=== PATIENT | male | born 1960 | race African-American/Black ===

== ENCOUNTER 2025-08-18 18:21 | Inpatient (IN) | payer MEDICAID ==
[~2025-08-18] VITALS: Ht 172.7 cm; Wt 83.2 kg
[2025-08-18 18:37] VITALS: O2SAT 97
[2025-08-18 20:17] LABS: BASOPHILS % 1.1 % (0.0-2.0); EOSINOPHILS % 1.3 % (0.0-5.0); HEMATOCRIT. 41.9 % (42.0-52.0); HEMOGLOBIN. 13.9 g/dL (14.0-18.0); LYMPHOCYTES % 50.5 % (20.0-50.0); MEAN PLATELET VOLUME 8.5 fl (7.4-10.4); MONOCYTES % 10.2 % (2.0-8.0); NEUTROPHILS % 36.9 % (40.0-76.0); PLATELET 245 x1000/uL (130-400); RED BLOOD CELL COUNT 4.22 mill/uL (4.7-6.1); RED CELL DISTRIBUTION WIDTH 12.8 % (11.6-14.6)
[2025-08-18 20:32] LABS: TROPONIN I HIGH SENSITIVITY 5 ng/L (3.0-53)
[2025-08-18 21:00] VITALS: BP 179/109; PULSE 102; RESP 19; TEMP 36.3; O2SAT 97
[2025-08-18 21:50] LABS: CREATININE 1.6 mg/dL (0.6-1.3); UREA NITROGEN BLOOD 23.0 mg/dL (9-23)
[2025-08-18] MEDS: CLONIDINE 0.1MG TABLET PO SCH (21:57)
[2025-08-18 22:00] VITALS: BP 179/109; PULSE 102; RESP 19; TEMP 36.3624
[2025-08-18] MEDS ORDERED: DOCUSATE SODIUM 100MG CAPSULE PO PRN (23:15)
[2025-08-18] MEDS ORDERED: ONDANSETRON HCL 4MG/2ML INJ IV PRN (23:15)
[2025-08-18] MEDS ORDERED: IPRATROPIUM/ALBUTEROL 0.5-3(2.5)MG/3ML NEB HHN PRN (23:15)
[2025-08-19] VITALS: BP 135/81; PULSE 80; RESP 17; TEMP 36.6; O2SAT 99
[2025-08-19] MEDS ORDERED: DEXTROSE 50% WATER 50ML SYRINGE IV PRN
[2025-08-19 00:24] LABS: PHOSPHORUS 4.2 mg/dL (2.5-4.9)
[2025-08-19 04:00] VITALS: BP 144/88; PULSE 73; RESP 18; TEMP 36.4; O2SAT 98
[2025-08-19] MEDS: BLOOD SUGAR DIAGNOSTIC STRIP TEST SCH (07:02)
[2025-08-19] MEDS: INSULIN LISPRO 100 UNITS/ML SUBCUT SCH ×2 (07:20→07:44)
[2025-08-19 07:59] LABS: BASOPHILS % 1.0 % (0.0-2.0); EOSINOPHILS % 2.8 % (0.0-5.0); HEMATOCRIT. 42.6 % (42.0-52.0); HEMOGLOBIN. 14.3 g/dL (14.0-18.0); LYMPHOCYTES % 53.5 % (20.0-50.0); MEAN PLATELET VOLUME 8.6 fl (7.4-10.4); MONOCYTES % 9.1 % (2.0-8.0); NEUTROPHILS % 33.6 % (40.0-76.0); PLATELET 239 x1000/uL (130-400); RED BLOOD CELL COUNT 4.25 mill/uL (4.7-6.1); RED CELL DISTRIBUTION WIDTH 13.1 % (11.6-14.6)
[2025-08-19 08:00] VITALS: BP 154/90; PULSE 89; RESP 15; TEMP 36.7; O2SAT 97
[2025-08-19 08:17] LABS: CREATININE 1.1 mg/dL (0.6-1.3); UREA NITROGEN BLOOD 15 mg/dL (9-23)
[2025-08-19] MEDS: CLOPIDOGREL 75MG TABLET PO SCH (08:29)
[2025-08-19] MEDS: INSULIN GLARGINE 100 UNITS/ML SUBCUT SCH (10:39)
[2025-08-19 12:00] VITALS: BP 151/87; PULSE 91; RESP 19; TEMP 36.7; O2SAT 98
[2025-08-19 16:00] VITALS: BP 169/97; PULSE 64; RESP 16; TEMP 36.6; O2SAT 97
[2025-08-19] MEDS: CLONIDINE 0.1MG TABLET PO PRN (17:25)
[2025-08-19 20:00] VITALS: BP 136/76; PULSE 73; RESP 20; TEMP 36.4; O2SAT 97
[2025-08-19] MEDS: ATORVASTATIN CALCIUM 40MG TABLET PO SCH (20:55)
[2025-08-19] MEDS: FAMOTIDINE 20MG TABLET PO SCH (20:55)
[2025-08-20] VITALS: BP 135/88; PULSE 76; RESP 20; TEMP 36.6; O2SAT 99
[2025-08-20 02:28] LABS: CLARITY URINE CLEAR (CLEAR); COLOR URINE YELLOW (YELLOW); GLUCOSE URINE 3+ (NEGATIVE); KETONES URINE NEGATIVE (NEGATIVE); LEUKOCYTE ESTERASE URINE NEGATIVE (NEGATIVE); NITRITE URINE NEGATIVE (NEGATIVE); OCCULT BLOOD URINE NEGATIVE (NEGATIVE); PH URINE 6.0 (4.5-8.0); PROTEIN URINE NEGATIVE (NEGATIVE); SPECIFIC GRAVITY URINE 1.013 (1.005-1.030); UROBILINOGEN URINE 0.2 E.U./dL (0.2-1.0)
[2025-08-20 03:01] LABS: SQUAMOUS EPITHELIAL CELL URINE FEW /lpf (RARE/1+)
[2025-08-20 03:03] LABS: BACTERIA URINE TRACE; RBC URINE NONE SEEN /hpf (0-2)
[2025-08-20 04:00] VITALS: BP 160/94; PULSE 73; RESP 20; TEMP 36.6; O2SAT 99
[2025-08-20 08:00] VITALS: BP 118/78; PULSE 71; RESP 18; TEMP 35.9; O2SAT 99
[2025-08-20] MEDS ORDERED: IODIXANOL 320MG/ML 100 ML BOTTLE IV ONE ×3 (08:40→13:10)
[2025-08-20] MEDS ORDERED: LIDOCAINE HCL 1% 20ML VIAL ONE (08:40)
[2025-08-20] MEDS ORDERED: VERAPAMIL HCL 2.5 MG/1 ML 2ML VIAL IV ONE (08:40)
[2025-08-20] MEDS ORDERED: HEPARIN 1000 UNITS/ML 10ML ONE ×2 (08:40→13:23)
[2025-08-20] MEDS ORDERED: DIPHENHYDRAMINE 50MG/ML VIAL ONE (11:25)
[2025-08-20] MEDS ORDERED: FENTANYL CITRATE/PF 50MCG/ML 2ML VIAL ONE (11:25)
[2025-08-20] MEDS ORDERED: MIDAZOLAM HCL 2 MG/2 ML VIAL ONE (11:25)
[2025-08-20] MEDS ORDERED: CLOPIDOGREL 75MG TABLET ONE (12:19)
[2025-08-20] MEDS: SODIUM CHLORIDE 0.45% 1,000 ML IV SCH (16:38)
[2025-08-20 20:00] VITALS: BP 100/68; PULSE 101; RESP 22; TEMP 36.8; O2SAT 99
[2025-08-20 22:25] LABS: CREATININE 1.1 mg/dL (0.6-1.3); UREA NITROGEN BLOOD 14 mg/dL (9-23)
[2025-08-21] VITALS: PULSE 90; RESP 24; O2SAT 97
[2025-08-21 04:00] VITALS: PULSE 89; RESP 15; O2SAT 95
[2025-08-21 08:00] VITALS: BP_SYST 137; BP_SYST 152; BP_DIAS 93; BP_DIAS 97; PULSE 82; PULSE 87; RESP 17; RESP 18; TEMP 36.8; TEMP 36.9; O2SAT 98; O2SAT 99
[2025-08-21 12:00] VITALS: BP 137/97; PULSE 82; RESP 18; TEMP 36.9; O2SAT 99
[2025-08-21] MEDS ORDERED: CLOP-31 PO ×2 (15:14→17:31)
[2025-08-21] MEDS ORDERED: METF-414 PO (15:14)
[2025-08-21] MEDS ORDERED: LIP40 PO ×2 (15:14→17:31)
[2025-08-21] MEDS ORDERED: ASPI-1406 PO ×2 (15:14→17:31)
[2025-08-21] MEDS ORDERED: ASPIRIN 81MG EC TABLET PO SCH (15:15)
[2025-08-21 16:00] VITALS: BP 120/79; PULSE 96; RESP 20; TEMP 36.9; O2SAT 99
[2025-08-21 16:50] VITALS: BP 120/79; PULSE 96; RESP 20; TEMP 98.5
[2025-08-21] MEDS ORDERED: METF-416 OP (17:31)
== END 2025-08-21 18:37 | disposition home or self-care (01) | DRG 175 ==
LOC: ER 18:21 → EDBEDREQTM 19:57 → EDBEDREQ 19:57 → 6WST 21:08 → 3WST 08-20 17:12
PROVIDERS: ADMIT Internal Medicine; ATTEND Internal Medicine
PROC: 027135Z Dilation of Coronary Artery, Two Arteries with Two Drug-eluting Intraluminal Devices, Percutaneous Approach (ICD-10-PCS; principal; 2025-08-20)
PROC: 02F13ZZ Fragmentation in Coronary Artery, Two Arteries, Percutaneous Approach (ICD-10-PCS; 2025-08-20)
PROC: B241ZZ3 Ultrasonography of Multiple Coronary Arteries, Intravascular (ICD-10-PCS; 2025-08-20)
PROC: 4A023N7 Measurement of Cardiac Sampling and Pressure, Left Heart, Percutaneous Approach (ICD-10-PCS; 2025-08-20)
PROC: B211YZZ Fluoroscopy of Multiple Coronary Arteries using Other Contrast (ICD-10-PCS; 2025-08-20)
PROC: B215YZZ Fluoroscopy of Left Heart using Other Contrast (ICD-10-PCS; 2025-08-20)
DX: I25.110 Atherosclerotic heart disease of native coronary artery with unstable angina pectoris (principal); I69.351 Hemiplegia and hemiparesis following cerebral infarction affecting right dominant side; N17.9 Acute kidney failure, unspecified; I10 Essential (primary) hypertension; E11.9 Type 2 diabetes mellitus without complications; Y83.1 Surgical operation with implant of artificial internal device as the cause of abnormal reaction of the patient, or of later complication, without mention of misadventure at the time of the procedure; T82.855A Stenosis of coronary artery stent, initial encounter; E86.0 Dehydration; Z95.5 Presence of coronary angioplasty implant and graft; Z79.02 Long term (current) use of antithrombotics/antiplatelets; Z87.891 Personal history of nicotine dependence; Z91.010 Allergy to peanuts; Z91.0120 Allergy to eggs, unspecified; Z79.899 Other long term (current) drug therapy; I25.2 Old myocardial infarction; Z79.82 Long term (current) use of aspirin; Y92.89 Other specified places as the place of occurrence of the external cause
CPT/HCPCS: 36415; 71045; 80048; 81003; 82962; 83036; 83735; 83880; 84100; 84484; 85025; 85347; 92928; 92978; 93005; 93458; 99285; C1725; C1753; C1769; C1874; C1887; C1893; J1200; J1644; J1815; J2003; J2250; J3010; J3490; Q9967; C1761